=== PATIENT | female | born 1955 | race Caucasian/White ===

== ENCOUNTER 2020-09-21 12:51 | Emergency (ER) | payer BC, SELFPAY ==
[2020-09-21 12:57] VITALS: BP 143/91; PULSE 78; RESP 19; TEMP 36.6; O2SAT 98
--- NOTE | 2020-09-21 13:31 | ED.GENADUL_ITS ---
Discharge Plan Disposition Patient Disposition: HOME Condition: Stable Discharge Details Clinical Impression: Back pain Primary Care Provider: Geradl Ramirez ED Provider: Vinay Higginbotham Home Meds and New Rx's Prescriptions: New cyclobenzaprine 5 mg tablet 5 mg PO TID PRNQty: 10 RF: 0 Continued clonazepam 0.5 mg tablet 0.5 mg PO PRN PRNRF: 0 ibuprofen 200 mg Tablet 400 mg PO PRN PRNRF: 0 acetaminophen [Tylenol] 325 mg Capsule 1,000 mg PO PRN PRNRF: 0 Dramamine 25 mg Tablet,Chewable 25 mg PO DAILY RF: 0 Discharge Instructions Instructions: Back Pain (ED) Additional Instructions: Flexeril as directed. Gentle stretching as tolerated. [id number] Tylenol and/or Motrin as directed for discomfort. Cool and/or warm compresses every 2 hours for 20 minutes. Please watch for new or worsening symptoms and return to the ER for any concerns. I have placed you on the orthopedic list, I recommend contacting their office later today or tomorrow for prompt outpatient reevaluation. I also recommend that you continue trying to be evaluated by a chiropractor. Contact your primary care provider as well, outpatient injections, physical therapy, advanced imaging may all be indicated for your ongoing symptoms. Referrals: Ezekiel Rayo MD [ [facility] STAFF PHYSICIAN] - Medical Decision Making 65-year-old female presents complaining of sciatica for 5 months, now going higher in her back over the past few days, no fever or obvious trauma. Has been evaluated by both her primary care provider and physical therapy. She is making an appointment with a chiropractor next week for adjustment and presents to the ER today requesting a cortisone injection. Patient appears well, nontoxic, neurologically intact. Examination is not consistent with cauda equina. We discussed her presentation and evaluation in length. Given she has had no recent trauma, emergent x-ray is likely not indicated however given her ongoing discomfort with radiculopathy, outpatient MRI could certainly be indicated. Patient reports that [id number] Tylenol and Motrin are not working. We discussed her symptoms further, she reports feeling tense, even spasms that time. We discussed initiating muscle relaxer therapy which patient believes is a great idea and very comfortable with. We will give the first 5 mg Flexeril here and I will write her for additional [address] her on the orthopedic list and recommend that she contact them next 24 hours to help expedite outpatient care. In the meantime she will follow up with her chiropractor next week. She was also encouraged to contact her primary care provider for her ongoing discomfort and medical needs. Patient understands that we do not do adjustments here in the ER and that we do not do spinal injections either. She is comfortable with this plan moving forward and has no additional questions or concerns. She was able to eat bread and butter with her Flexeril tablet without difficulty. No vomiting while under my care. Was brought to her attention that she is mildly hypertensive, she is aware of this and has been so in the past. Medical Records Medical records reviewed: Yes I reviewed the patient's medical records. HPI General Mode of arrival: ambulatory . Date/Time Provider Initiated Documentation: 09/21/20 12:58 . Limitations to Documentation: no limitations . Information obtained by: patient . HPI Narrative: This is a 65-year-old female who denies significant past medical history presenting for ongoing back pain. She states that she has been dealing with sciatica for the past 5 months or so. 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 She states that she is very tense and over the past few days she feels as though her sciatica pain has worked up into her back. She states that the pain is worse with movement, denies any obvious injury or trauma. She tells me that she has been seen by both her primary care provider and physical therapy for this problem. She feels as though something is out of alignment and would like to have an adjustment by a chiropractor. She was unaware that physical therapy would not do this, she actually saw them today. Physical therapy does believe that she would benefit from ongoing physical therapy. Patient is making an appointment with a chiropractor next week and simply presents to the ER today requesting some bridge therapy so that she can see be seen by her chiropractor next week. She is hoping for a cortisone injection today, she understands that we do not do adjustments in the ER. She reports that at times the pain gets so severe it does cause her to feel nauseous but denies any vomiting. The pain radiates down her left leg, but denies any numbness, tingling, weakness. She denies recent fever, chest pain, shortness of breath, abdominal pain. Denies any urinary or bowel changes, denies dysuria, incontinence. Patient is also currently weaning off of her clonazepam now that her mother has . Related Data Home Medications Medication Instructions Recorded Confirmed Dramamine 25 mg PO DAILY 09/21/20 09/21/20 acetaminophen [Tylenol] 1,000 mg PO PRN PRN 09/21/20 09/21/20 clonazepam 0.5 mg PO PRN PRN 09/21/20 09/21/20 cyclobenzaprine 5 mg PO TID PRN #10 tab 09/21/20 ibuprofen 400 mg PO PRN PRN 09/21/20 09/21/20 Previous Rx's Medication Instructions Recorded cyclobenzaprine 5 mg PO TID PRN #10 tab 09/21/20 Allergies Allergy/AdvReac Type Severity Reaction Status Date / Time No Known Allergies Allergy Unverified 09/21/20 13:02 General Stated Complaint: Nk/Back Pain SARBJIT: 3 Review of Systems Constitutional Constitutional: Denies fever(s) and Denies weakness Cardiovascular Cardiovascular: Denies chest pain and Denies dyspnea Respiratory Respiratory: Denies cough and Denies dyspnea Gastrointestinal Gastrointestinal: Denies abdominal pain, Reports nausea and Denies vomiting Genitourinary Genitourinary: Denies dysuria and Denies urinary incontinence Musculoskeletal Musculoskeletal: Reports back pain, Denies numbness, Reports stiffness and Denies tingling Neurologic Neurologic: Denies numbness, Denies tingling and Denies weakness [facility] Social History Smoking/Tobacco Use Status: Never Smoking risk assessment performed?: Yes Alcohol Intake: never Substance use type: does not use Do you feel safe at home: Yes Do you feel safe in your relationship?: Yes Exam Const General: cooperative, healthy appearing, comfortable and no acute distress Orientation: alert and awake [facility] Head: normal to inspection, normocephalic and atraumatic Eyes Conjunctivae: conjunctivae normal Sclera: sclerae normal Neck Neck: normal visual inspection, full ROM, no meningeal signs, trachea midline, supple and nontender Resp Effort & Inspection: normal respiratory effort and able to speak in complete sentences Auscultation: clear to auscultation bilaterally Cardio Rate: regular rate Rhythm: regular rhythm GI Palpation: soft, not firm, no pulsatile masses and nontender Back/Spine/Pelvis Back: no CVA tenderness and back tenderness (Diffuse mild lumbar discomfort, no midline tenderness) Thoracic/Lumbar Spine: straight leg raise negative bilaterally Skin General skin exam: no rashes or lesions noted Neuro General: patient alert, patient awake, moves all extremities and no focal motor deficits Cognition: normal cognition Gait: antalgic Motor: muscle tone normal throughout and strength 5/5 throughout Sensory Exam: no sensory deficits noted Extrem General: normal to inspection, full ROM, capillary refill normal, no pedal edema and no calf tenderness Psych Appearance: grossly normal Mental Status: mental status grossly normal Course Vital Signs Vital signs: Vital Signs Temperature 36.6 C 09/21/20 12:57 Pulse 78 09/21/20 12:57 Respiratory Rate 99 H 09/21/20 12:57 Blood Pressure 143/91 H 09/21/20 12:57 Pulse Oximetry 98 09/21/20 12:57 Temperature 36.6 C 09/21/20 12:57 Temperature Source Temporal Artery Scan 09/21/20 12:57 Pulse 78 09/21/20 12:57 Respiratory Rate 99 H 09/21/20 12:57 Respiratory Effort Non-Labored 09/21/20 13:04 Blood Pressure 143/91 H 09/21/20 12:57 Blood Pressure Position Sitting 09/21/20 12:57 Pulse Oximetry 98 09/21/20 12:57 Oxygen Delivery Method Room Air 09/21/20 12:57 Oxygen Flow Rate 0 09/21/20 12:57 Pain Level 5 09/21/20 13:04
[2020-09-21] MEDS: Cyclobenzaprine 10 MG TAB 5 MG PO (13:48)
[2020-09-21 13:56] VITALS: BP 152/94; PULSE 76; RESP 16; O2SAT 99
== END 2020-09-21 14:01 | disposition home or self-care (01) ==
PROVIDERS: Emergency Provider Physician Assistant; PCP Neuromusculoskeletal Medicine & OMM
DX: M54.16 Radiculopathy, lumbar region (principal); R11.0 Nausea
CPT/HCPCS: 99283; 99284

== ENCOUNTER 2020-12-19 01:23 | Outpatient (CLI) | payer BC, SELFPAY ==
--- NOTE | 2020-12-19 | DI.CT_ITS ---
EXAM: CT CHEST W CLINICAL HISTORY: PULMONARY NODULE, R91.1 TECHNIQUE: Imaging Protocol: Axial computed tomography images with coronal and sagittal reformatted images were created and reviewed CONTRAST MATERIAL: Intravenous: Omnipaque 350 Contrast volume:70 mL. COMPARISON: DX XR CHEST PA AND LATERAL (GENERIC) from 10/28/2020 FINDINGS: Tracheobronchial tree: Patent where visualized. Mediastinum and Rosy: No dominant adenopathy or fluid collection. Pulmonary parenchyma: No consolidation or dominant measurable mass. There is scarring or atelectasis in the lung bases. There is a 0.6 cm calcified nodule in the left lower lobe. There is a 1.5 x 0.9 cm calcified nodule adjacent to the left major fissure in the left upper lobe in the left lower lobe. This appears to correspond to the density seen on the chest x-ray from 10/28/2020. No noncalcified pulmonary nodules are identified. Pleura: No effusion or pneumothorax. Heart: The heart is not dilated. Mild coronary artery calcification is present. No pericardial effus ion. Aorta: Thoracic aorta non-dilated. Mild atherosclerosis. Upper abdomen: There are 2 simple cysts seen in the liver. The largest is in the right lobe and julio sures 2.3 x 2.2 cm. The smaller measures 0.8 cm and is located in the caudate lobe. Lymph nodes: Within normal limits. Bones: Degenerative changes in the spine. No suspicious lytic or sclerotic lesions. Soft tissues: Unremarkable. IMPRESSION: 1. Calcified nodules in the left lower lobe. The larger corresponds to the density seen on this ches t x-ray. 2. No noncalcified pulmonary nodules or mediastinal adenopathy. 3. Hepatic cysts. RADIATION DOSE DELIVERED: 458.08mGy.cm Total DLP DATA REPOSITORY: All CT scans at this facility are submitted to the National Radiology Data Registry (NRDR) Dose Index Registry (DIR) with the [employer] ([employer]). RADIATION OPTIMIZATION: All CT scans at this facility use at least one of these dose optimization te chniques: automated exposure control; mA and/or kV adjustment per patient size (includes targeted exa ms where dose is matched to clinical indication); or iterative reconstruction.
[2020-12-19 14:46] LABS: CREATININE 0.9 mg/dL (0.55-1.02)
[2020-12-19] MEDS: Omnipaque 350 MG/ML 100 ML BTL IJ (14:55)
[2020-12-19] MEDS: Normal Saline - Diluent 50 ML VIAL IV (14:56)
== END 2020-12-19 01:24 | disposition home or self-care (01) ==
LOC: DI 01:24
PROVIDERS: PCP Neuromusculoskeletal Medicine & OMM; Visit Provider Neuromusculoskeletal Medicine & OMM
DX: R91.8 Other nonspecific abnormal finding of lung field (principal); K76.89 Other specified diseases of liver
CPT/HCPCS: 71260; 82565; J3490

== ENCOUNTER 2025-03-14 17:40 | Outpatient (CLI) | payer MEDICARE, BC, SELFPAY ==
--- NOTE | 2025-03-14 18:30 | DI.RAD_ITS ---
Exam(s) XR CHEST 2V PA LATERAL EXAM: XR CHEST 2V PA LATERAL CLINICAL HISTORY: eval pna TECHNIQUE: 2D digital imaging was performed of the chest. Two images were obtained. PA and lateral views were obtained. COMPARISON: DX XR CHEST PA AND LATERAL (GENERIC) from 10/28/[address] CHEST W from 12/19/2020 FINDINGS: MEDIASTINUM: Normal. HEART: Normal. PULMONARY VASCULATURE: Normal. LUNGS: There is a stable calcified nodule seen in the left lung. The lungs are clear. PLEURAL SPACE: No pleural effusion or pneumothorax. BONE:Within normal limits for the patient's age. OTHER FINDINGS:Normal. IMPRESSION: No acute pulmonary findings. DATA REPOSITORY: RADIATION DOSE DELIVERED:
--- NOTE | 2025-03-14 20:50 | DI.VRAD_ITS ---
PROCEDURE INFORMATION: Exam: XR Chest Exam date and time: 03/14/2025 6:41 PM Age: 70 years old Clinical indication: Cough; Eval pna TECHNIQUE: Imaging protocol: Radiologic exam of the chest. Views: 2 views. COMPARISON: CT CHEST WO 07/17/2021 8:40 AM FINDINGS: Lungs: Calcification within the posterior left upper lobe, possibly related to prior granulomatous disease. No focal consolidations or noncalcified pulmonary nodules. No pulmonary edema. Pleural spaces: Normal. Heart/Mediastinum: Normal. Bones/joints: Multilevel thoracic spine degenerative disc space narrowing and osteophyte formation. IMPRESSION: No acute findings. Dictated and Authenticated by: Rosalino Aleman MD. Orderin Sonia Patel MD
== END 2025-03-14 18:00 ==
PROVIDERS: PCP Neuromusculoskeletal Medicine & OMM; Visit Provider Nurse Practitioner Family
DX: R05.9 Cough, unspecified (principal)
CPT/HCPCS: 71046